=== PATIENT | female | born 1940 | race Caucasian/White ===

== ENCOUNTER 2017-03-29 06:28 | Day surgery (SDC) | payer MEDICARE, OTHER ==
[~2017-03-29] VITALS: Ht 151.1 cm; Wt 75.5 kg
[~2017-03-29 06:28] MED LIST: AMLO5TAB66 PO; ATOR20TA86 PO; BRINOS OU; FLUT16H NASAL; LEVO50 PO; LOSA1TAB36 PO; MOME13HF IH; TIMO.5OS OU; TRAVZOS OU; WARF3TAB29 PO
[2017-03-29] MEDS ORDERED: CYCLOPENTOLATE HCL 2% 2 ML OPHTHALMIC SOLUTION ONE (06:41)
[2017-03-29] MEDS ORDERED: DICLOFENAC SODIUM 0.1% 2.5 ML OPHTHALMIC SOLUTION ONE (06:41)
[2017-03-29] MEDS ORDERED: RINGERS SOLUTION,LACTATED 500 ML IV ONE ×2 (06:41→07:00)
[2017-03-29] MEDS ORDERED: TETRACAINE HCL/PF 0.5% 4 ML OPHTHALMIC SOLUTION ONE (06:41)
[2017-03-29] MEDS ORDERED: PHENYLEPHRINE HCL 2.5% 2 ML OPHTHALMIC SOLUTION ONE (06:42)
[2017-03-29] MEDS ORDERED: MOXIFLOXACIN HCL 0.5% 3 ML OPHTHALMIC SOLUTION ONE (06:42)
[2017-03-29] MEDS ORDERED: TETRACAINE HCL/PF 0.5% 4 ML OPHTHALMIC SOLUTION OD ONE (07:00)
[2017-03-29] MEDS ORDERED: ACETAMINOPHEN/CODEINE 300-30 MG TABLET PO PRN (07:00)
[2017-03-29] MEDS: MOXIFLOXACIN HCL 0.5% 3 ML OPHTHALMIC SOLUTION OD SCH ×3 (07:32→07:53)
[2017-03-29] MEDS: DICLOFENAC SODIUM 0.1% 2.5 ML OPHTHALMIC SOLUTION OD SCH ×3 (07:32→07:53)
[2017-03-29] MEDS: PHENYLEPHRINE HCL 2.5% 2 ML OPHTHALMIC SOLUTION OD SCH ×3 (07:32→07:45)
[2017-03-29] MEDS: CYCLOPENTOLATE HCL 2% 2 ML OPHTHALMIC SOLUTION OD SCH ×3 (07:32→07:45)
[2017-03-29] MEDS ORDERED: AcetaZOLAMIDE 250 MG TABLET PO ONE (09:00)
[2017-03-29] MEDS ORDERED: AcetaZOLAMIDE 250 MG TABLET ONE (09:06)
[2017-03-29] MEDS ORDERED: LIDOCAINE HCL/PF 1% 2 ML VIAL IM ONE (17:27)
[2017-03-29] MEDS ORDERED: POVIDONE-IODINE 10% 15 ML SOLUTION UD TP ONE (17:27)
[2017-03-29] MEDS ORDERED: HYALURONATE SODIUM 12 MG/ML 0.8 ML SYRINGE IO ONE (17:27)
[2017-03-29] MEDS ORDERED: BRIMONIDINE TARTRATE 0.15% 5 ML OPHTHALMIC SOLUTION OS ONE (17:27)
[2017-03-29] MEDS ORDERED: TETRACAINE HCL VISCOUS 0.5% 5 ML OPHTHALMIC SOLUTION OS ONE (17:27)
[2017-03-29] MEDS ORDERED: EPINEPHrine 1:1,000 [1 MG/ML] AMP IM ONE (17:27)
[2017-03-29] MEDS ORDERED: HYALURONATE SOD/CHONDROITIN SOD 0.5 ML VIAL IO ONE (17:27)
== END 2017-03-29 09:30 | disposition home or self-care (01) ==
LOC: SURGERY 06:28
PROVIDERS: ATTEND Ophthalmology
DX: H25.11 Age-related nuclear cataract, right eye (principal); I12.9 Hypertensive chronic kidney disease with stage 1 through stage 4 chronic kidney disease, or unspecified chronic kidney disease; N18.9 Chronic kidney disease, unspecified; E03.9 Hypothyroidism, unspecified; H40.9 Unspecified glaucoma; E66.01 Morbid (severe) obesity due to excess calories; Z79.01 Long term (current) use of anticoagulants; Z98.42 Cataract extraction status, left eye; Z87.442 Personal history of urinary calculi; Z86.79 Personal history of other diseases of the circulatory system
CPT/HCPCS: 66984; 93005; C1780; J0171; J3490 ×2; J7120